=== PATIENT | female | born 1945 | race Caucasian/White ===

== ENCOUNTER → 2021-01-19 | Outpatient (CLI) | payer MEDICARE, OTHER | LOC: M PLARAD 08:15 | PROVIDERS: ATTEND Internal Medicine Pulmonary Disease | DX: R91.1 Solitary pulmonary nodule (principal) | CPT/HCPCS: 78815; A9552 ==

== ENCOUNTER → 2021-03-19 | Outpatient (CLI) | payer MEDICARE ==
[~2021-03-19] MED LIST: FLUT1BLS8 IH; LISI10TA15 PO; PROAAER10 INH
--- NOTE | 2021-03-19 11:16 | REP ---
INDICATION: SOLITARY PULMONARY NODULE. COMPARISON: None. TECHNIQUE: Imaging protocol: Computed tomography of the chest without IV contrast. Contiguous 3 mm thick axial projection images were obtained through the chest. 2D sagittal and coronal reconstructions were performed. Radiation optimization: All CT scans at this facility use at least one of these dose optimization techniques: automated exposure control; mA and/or kV adjustment per patient size (includes targeted exams where dose is matched to clinical indication); or iterative reconstruction. FINDINGS: Lower neck: The thyroid gland is normal. There is no supraclavicular lymphadenopathy. Mediastinum: There are few, not pathologically enlarged mediastinal lymph nodes. Heart/thoracic aorta: The heart size is normal. There is no pericardial effusion. There is calcific vascular disease of the thoracic aorta and coronary arteries. Upper abdomen: There is calcific vascular disease of the abdominal aorta. There are bilateral adrenal adenomas, measuring 2.2 cm in diameter on the right and 1.4 cm in diameter on the left. Thoracic esophagus: Normal. Chest wall and axilla: The breasts and soft tissues of the chest wall appear unremarkable. There is no axillary lymphadenopathy. There is moderate degenerative disc disease of the mid and lower thoracic and upper lumbar spine, most severe at the T12-L1 level. Lung parenchyma: There is again noted a soft tissue density mass with a spiculated margin in the superior segment of the lower lobe of the right lung, measuring 1.7 by 1.2 x 1.1 cm (was 12 x 9 x 7 mm) there is mild upper lobe predominant centrilobular emphysema. There are a few, scattered, foci of nonspecific bronchiolitis. There are no pleural effusions. IMPRESSION: 1. Enlarging spiculated soft tissue density mass in the lower lobe of the right lung, highly suggestive of a primary bronchogenic carcinoma. 2. Multiple reactive mediastinal lymph nodes. 3. Stable bilateral adrenal adenomas. 4. Calcific vascular disease of the thoracoabdominal aorta and coronary arteries. 5. Thoracolumbar degenerative disc disease. <Electronically signed by Sawyer Miguel > 03/19/21 2209
== END ==
LOC: M PLAIMG 10:30
PROVIDERS: ATTEND Internal Medicine Pulmonary Disease
DX: R91.1 Solitary pulmonary nodule (principal)

== ENCOUNTER → 2021-03-20 | Outpatient (CLI) | payer MEDICARE | LOC: M LABSMTC 10:13 | PROVIDERS: ATTEND Anesthesiology | DX: Z01.812 Encounter for preprocedural laboratory examination (principal); Z20.822 Contact with and (suspected) exposure to COVID-19 ==

== ENCOUNTER → 2021-03-23 | Outpatient (CLI) | payer MEDICARE ==
--- NOTE | 2021-03-23 21:24 | ECGEPIP ---
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 Electronically Signed on 03-23-2021 21:23:46 EDT by Yevgeniy Bailey
== END ==
LOC: M EKG 12:46
PROVIDERS: ATTEND Anesthesiology
DX: J44.9 Chronic obstructive pulmonary disease, unspecified (principal); I10 Essential (primary) hypertension

== ENCOUNTER 2021-03-25 07:22 | Day surgery (SDC) | payer MEDICARE ==
[~2021-03-25] VITALS: Ht 160 cm; Wt 61.9 kg
[~2021-03-25 07:22] MED LIST changes: +ALBUTEROL SULFATE 2.5 MG/0.5 ML INH NEB SOLN INH ONE; +LIDOCAINE 4% INJ 5ML AMP INH ONE; +LR 1,000 ML IV ONE
[2021-03-25] MEDS ORDERED: ROCURONIUM BROMIDE 50 MG/5 ML VIAL As Ordered ONE (09:10)
[2021-03-25] MEDS ORDERED: LIDOCAINE 2% 100MG/5ML SDV (FOR ANES.) As Ordered ONE (09:10)
[2021-03-25] MEDS ORDERED: fentaNYL 100 MCG/2 ML INJECTION (J3010) As Ordered ONE (09:11)
[2021-03-25] MEDS ORDERED: MIDAZOLAM INJ 2MG/2ML VIAL (J2250 PER 1MG) As Ordered ONE (09:11)
[2021-03-25] MEDS ORDERED: propofoL 200 MG/20 ML VIAL As Ordered ONE (09:11)
[2021-03-25] MEDS ORDERED: CETACAINE SPRAY 5GM As Ordered ONE (09:12)
[2021-03-25] MEDS ORDERED: THROMBIN SOLN 5,000 UNITS VIAL As Ordered ONE (09:12)
[2021-03-25] MEDS ORDERED: EPINEPHrine 1MG/10ML SYRINGE 1.5IN As Ordered ONE (09:12)
[2021-03-25] MEDS ORDERED: fentaNYL 100 MCG/2 ML INJECTION (J3010) IV PRN (10:50)
[2021-03-25] MEDS ORDERED: dexameTHASONE 4 MG/ML 1ML VIAL (J1100 PER 1MG) As Ordered ONE (10:50)
[2021-03-25] MEDS ORDERED: ONDANSETRON 4MG/2ML VIAL IV PRN (10:50)
[2021-03-25] MEDS ORDERED: oxyCODONE 5MG TAB PO PRN (10:50)
[2021-03-25] MEDS ORDERED: SUGAMMADEX SODIUM 500 MG/5 ML VIAL (BRIDION) As Ordered ONE (10:50)
[2021-03-25] MEDS ORDERED: ONDANSETRON 4MG/2ML VIAL As Ordered ONE (10:50)
[2021-03-25] MEDS ORDERED: METOCLOPRAMIDE INJ 10MG/2ML VIAL (J2765 PER 1) As Ordered ONE (10:50)
[2021-03-25] MEDS ORDERED: HYDROMORPHONE HCL 0.5 MG/ 0.5 ML SYRINGE (J1170 PER 1) IV PRN (10:50)
[2021-03-25] MEDS ORDERED: LR 1,000 ML IV SCH (10:50)
[2021-03-25] MEDS ORDERED: PHENYLephrine 500MCG 5ML (100MCG/ML) SYRINGE As Ordered ONE (10:50)
[2021-03-25] MEDS ORDERED: ALBUTEROL SULFATE 2.5 MG/0.5 ML INH NEB SOLN INH ONE (10:55)
--- NOTE | 2021-03-25 10:59 | ROOR ---
Patient Name: Salima Malhotra Procedure Date: 03/25/2021 9:08 AM Date of : 1945 Admit Type: Outpatient Age: 75 Room: Main OR Note Status: Finalized Attending MD: Nancy Pierce MD Procedure: Bronchoscopy Indications: Right lower lobe nodule Providers: Nancy Pierce MD (Doctor) Referring MD: Abram Rodriguez DO (Referring MD) Requesting Physician: Medicines: Lidocaine 4% via nebulizer with Albuterol 2.5 mg, Epinephrine 1 mg/10 mL topical 1 mL, Cetacaine topical, General Anesthesia Complications: No immediate complications. Estimated blood loss: Minimal Procedure: Pre-Anesthesia Assessment: - Prior to the procedure, a History and Physical was performed, and patient medications and allergies were reviewed. The patient's tolerance of previous anesthesia was also reviewed. The risks and benefits of the procedure and the sedation options and risks were discussed with the patient. All questions were answered, and informed consent was obtained. Prior Anticoagulants: The patient has taken no previous anticoagulant or antiplatelet agents. ASA Grade Assessment: II - A patient with mild systemic disease. After reviewing the risks and benefits, the patient was deemed in satisfactory condition to undergo the procedure. - Patient identification and proposed procedure were verified prior to the procedure by the physician, the nurse, the anesthesiologist, the associate creative director and the security systems technician. The procedure was verified in the procedure room. The Bronchoscope was introduced through the mouth, via the endotracheal tube (the patient was intubated for the procedure) and advanced to the tracheobronchial tree of both lungs. The procedure was accomplished without difficulty. The patient tolerated the procedure well. Findings: The endotracheal tube is in good position. The visualized portion of the trachea is of normal caliber. The german is sharp. The tracheobronchial tree was examined to at least the first subsegmental level. Bronchial mucosa and anatomy are normal; there was some mucosal pitting and webbing and thick mucoid secretions. There are no endobronchial secretions. [employer] Electromagnetic navigation bronchoscopy was performed. The CT scan was used for planning purposes. A virtual bronchoscopic image was generated using the planning software. The target in the posterior basal segment of the right lower lobe was marked. A nodule almost 2 cm in size was found and a pathway was created. After a complete airway exam, the locatable robotic navigation phase was then begun to locate the target lesion(s). Radial ultrasound probe was malfunctioning. Positioning was confirmed using fluoroscopy. Transbronchial biopsies of a nodule were performed in the posterior basal segment of the right lower lobe using forceps and sent for histopathology examination. The procedure was guided by fluoroscopy. Transbronchial biopsy technique was selected because the sampling site was not visible endoscopically. Impression: - Right lower lobe nodule - The airway examination was normal. - Electromagnetic navigation bronchoscopy was performed. - Transbronchial lung biopsies were performed. Recommendation: - Await test results. Procedure Code(s): --- Professional --- 28346, Bronchoscopy, rigid or flexible, including fluoroscopic guidance, when performed; with transbronchial lung biopsy(s), single lobe 63146, Bronchoscopy, rigid or flexible, including fluoroscopic guidance, when performed; with computer-assisted, image-guided navigation (List separately in addition to code for primary procedure[s]) CPT copyright 2019 [employer]. All rights reserved. The codes documented in this report are preliminary and upon drill grinder review may be revised to meet current compliance requirements. Nancy Pierce MD 03/25/2021 10:59:06 AM Number of Addenda: 0 Note Initiated On: 03/25/2021 9:08 AM
--- NOTE | 2021-03-25 11:06 | REP ---
INDICATION: S/P Bronch. COMPARISON: Comparison chest x-ray October 09, 2020. TECHNIQUE: Portable upright AP chest radiograph. FINDINGS: The lungs are symmetrically aerated. There are 2 fiducial metallic markers in the right infrahilar region. There is no evidence of pneumothorax or hydrothorax or parenchymal infiltrate. Heart is not felt to be enlarged. IMPRESSION: Fiducial markers visible in the right infrahilar region. No complication is seen. <Electronically signed by Dre Varma > 03/25/21 [id number]
[2021-03-25 11:12] VITALS: BP 129/63
--- NOTE | 2021-03-26 08:05 | REP ---
INDICATION: RIGHT LOWER LOBE ABNORMAL FINDING. COMPARISON: None. TECHNIQUE: Sixteen views. 208.3 seconds of fluoroscopy time is reported. FINDINGS: A series of 16 fluoroscopically obtained spot radiographs document bronchoscopic position and manipulation. IMPRESSION: . Procedural imaging. <Electronically signed by Dre Varma > 03/26/21 0875
== END 2021-03-25 11:40 | disposition home or self-care (01) ==
LOC: M SDC 07:22
PROVIDERS: ATTEND Internal Medicine Pulmonary Disease
DX: C34.91 Malignant neoplasm of unspecified part of right bronchus or lung (principal); I10 Essential (primary) hypertension; J44.9 Chronic obstructive pulmonary disease, unspecified; M19.90 Unspecified osteoarthritis, unspecified site; F17.210 Nicotine dependence, cigarettes, uncomplicated; Z79.899 Other long term (current) drug therapy; Z79.51 Long term (current) use of inhaled steroids
CPT/HCPCS: 31627; 31628; 71045; 76000; 88305; 88341; 88342; A4648; J1100; J2250; J2370; J2405; J2765; J3010; S2900

== ENCOUNTER → 2021-04-16 | Outpatient (CLI) | payer MEDICARE ==
[~2021-04-16] MED LIST changes: -ALBUTEROL SULFATE 2.5 MG/0.5 ML INH NEB SOLN INH ONE; +BUPR150T12 PO; +GLUCTAB6 PO; -LIDOCAINE 4% INJ 5ML AMP INH ONE; -LR 1,000 ML IV ONE; +THERTAB52 PO
--- NOTE | 2021-04-16 14:10 | RADONC.CN ---
Radiation Oncology Hx/Consult Radiation Oncology Consult Date of Service: Apr 16, 2021 Pt Identifier Salima Malhotra is a 75 year old female current smoker with a recently diagnosed NSCLC of the RLL [id number] stage IA2 PDL1 90%. She is seen today for consideration of SBRT. Diagnosis/Treatment History Oncologic History Patient followed by Dr. Pierce for COPD and right lung nodule. 12/18/[address] chest with RLL nodule 01/19/21 PET-CT with low grade uptake in the RLL nodule. No mediastinal or hilar uptake 03/19/21 CT chest enlargement of the RLL to 1.7 cm 03/25/21 EBUS biopsy showing adenocarcinoma PDL1 90% negtive for ALK EGFR BRAF ROS1 12/23/20 PFTs FVC 2.19 FEV1 1.19 FEV1/FVC 74% pred DLCO 35% pred Interval History Salima reports she has some mild MOLINA but is otherwise functional at home. She has minimal cough, no hemoptysis. No CP. She has preserved appetite and weight. She current smokes, would like to quit. Was unable to obtain chantix previously. She is interested in wellbutrin. She is ready to set a quit date upon completion of RT. Past Medical History: COPD HTN Arthritis Past Surgical History: Appendectomy Family History: Mother pancratic cancer Social History: 40 pack year current 1 ppd smoker Drinks occasionally not to excess Allergies / Meds Allergies: Coded Allergies: No Known Allergies (Unverified , 03/20/21) Home Meds Active Scripts Bupropion Hcl (Bupropion Xl) 150 Mg Tab.er.24h, 1 TAB PO DAILY for 30 Days, #30 TAB 2 Refills Prov:ELIZABETH VALENZUELA MD 04/16/21 Reported Medications Gluc Hobbs/Chondro Hobbs A/Vit C/Mn (Glucosamine Chondroitin Tab) 1 Each Tablet, 1 TAB PO DAILY, TAB 04/16/21 Multivitamin,Therapeutic (Thera-Tabs) 1 Each Tablet, 1 TAB PO DAILY for 30 Days, #30 TAB 04/16/21 Albuterol Sulfate (Proair Hfa) 8.5 Gm Hfa.aer.ad, 2 PUFF INH PRN, INHALER 03/20/21 Lisinopril/Hydrochlorothiazide (Lisinopril-Hctz 10-12.5 mg Tab) 1 Each Tablet, 1 TAB PO DAILY, TAB 03/20/21 Fluticasone/Umeclidin/Vilanter (Trelegy Ellipta 200-62.5-25) 200-62.5 Blst.w.dev, 1 EACH IH DAILY 03/20/21 Review of Systems Constitutional: Denies: Fever, Fatigue, Weight Loss Eyes: Denies: Pain HEENT: Denies: Head Aches Skin: Denies: Rash Pulmonary: Reports: Dyspnea; Denies: Cough, Pleuritic Chest Pain Cardiovascular: Denies: Chest Pain, Edema Gastrointestinal: Denies: Abdominal Pain Hematologic: Denies: Enlarged Lymph Nodes Musculoskeletal: Reports: Joint pain; Denies: Neck pain, Back pain Neurological: Denies: Weakness, Numbness Psych: Reports: Mood Normal Vital Signs Ht 63" Wt 139 lbs BMI 24.5 T 98 P 86 RR 18 BP 174/90 O2 93% on RA Pain 0 Fatigue 0 General Exam: Alert, Cooperative, No Acute Distress Eye Exam: PERRLA, EOMI ENT EXAM: Atraumatic Neck Exam: Supple; Negative: Lymphadenopathy Chest Exam: Clear to auscultation, Wheezing Heart Exam: Rate Normal, Regular Rhythm Abdomen Exam: Soft Extremity Exam: Negative: Edema Skin Exam: Nl turgor and temperature Neuro Exam: Normal Gait, Normal Speech, Cranial Nerves 3-12 NL Psych Exam: Mental status NL Diagnostic and Laboratory Diagnostic Review Radiologic images, relevant labs and pathology reports were personally reviewed and discussed with Ms. Malhotra. Assessment and Plan Impression Ms. Malhotra is a 75 year old female current smoker with a recently diagnosed NSCLC of the RLL [id number] stage IA2 PDL1 90%. She is seen today for consideration of SBRT. Stage NSCLC RLL [id number] stage IA2 Performance Status ECOG 0 Plan We had an extensive discussion with Ms. Malhotra regarding the diagnosis at hand and available therapeutic options. She has a small peripheral lesion which is a good SBRT target. She is not a surgical candidate based on her PFTs. I recommend 60 Gy in 5 fractions with 4DCT/ITV/DCA planning. We discussed the efficacy of SBRT in this setting but that it does not preclude the possibility of another lesion developing elsewhere in time. To modify this risk I encouraged her to quit smoking. She is ready to pick a quit date. Agreed it would be immediately after completing SBRT. She would like a quit aid so I will prescribe wellbutrin 150 mg daily for this purpose. She can use nicotine replacement products as she sees fit. We spent 3 minutes discussing her quit attempt. We discussed the logistics of receiving radiation therapy in detail including the need for a 1-time planning session. This can occur in the coming weeks. We reviewed the side effects of treatment including fatigue and pneumonitis as well as late fibrosis. After discussing the risks, benefits and alternatives to radiation therapy, Ms. Malhotra was amenable to pursuing radiotherapy. All questions were answered to the patient's satisfaction. We instructed the patient that if there were any questions,concerns or changes in clinical status in the interim to contact us. Recommendations SBRT 60 Gy in 5 fractions with 4DCT/ITV/DCA planning Simulation in the coming weeks Wellbutrin 150 mg daily as quit aid Billing Statement Total time of [45] minutes was spent preparing for the visit [3], obtaining HPI [7], examining the patient [3], reviewing diagnostic tests [7], discussing management options [15], coordinating care [2], and writing this note [8]. ELIZABETH VALENZUELA MD Apr 16, 2021 14:10
== END ==
LOC: M ONCR 12:47
PROVIDERS: ATTEND General Practice
DX: C34.31 Malignant neoplasm of lower lobe, right bronchus or lung (principal); F17.210 Nicotine dependence, cigarettes, uncomplicated; Z79.899 Other long term (current) drug therapy

== ENCOUNTER 2021-04-21 13:47 | Outpatient (RCR) | payer MEDICARE | END 2021-04-26 | LOC: M ONCR 13:47 | PROVIDERS: ATTEND General Practice | DX: C34.31 Malignant neoplasm of lower lobe, right bronchus or lung (principal) ==

== ENCOUNTER 2021-05-15 13:40 | Outpatient (RCR) | payer MEDICARE ==
[~2021-05-15 13:40] MED LIST changes: -LISI10TA15 PO; +LISI10TA24 PO
== END 2021-05-26 ==
LOC: M ONCR 13:40
PROVIDERS: ATTEND General Practice
DX: C34.31 Malignant neoplasm of lower lobe, right bronchus or lung (principal)

== ENCOUNTER → 2021-10-21 | Outpatient (CLI) | payer MEDICARE ==
[~2021-10-21] MED LIST changes: +ISOVUE-370 76% 100ML VIAL As Ordered ONE
== END ==
LOC: M RAD 14:15
PROVIDERS: ATTEND General Practice
DX: C34.90 Malignant neoplasm of unspecified part of unspecified bronchus or lung (principal)
CPT/HCPCS: 71260; Q9967

== ENCOUNTER → 2021-10-23 | Outpatient (CLI) | payer MEDICARE ==
[~2021-10-23] MED LIST changes: -ISOVUE-370 76% 100ML VIAL As Ordered ONE
== END ==
LOC: M ONCR 14:23
PROVIDERS: ATTEND General Practice
DX: C34.31 Malignant neoplasm of lower lobe, right bronchus or lung (principal); F17.210 Nicotine dependence, cigarettes, uncomplicated; R91.8 Other nonspecific abnormal finding of lung field; Z92.3 Personal history of irradiation; Z96.652 Presence of left artificial knee joint

== ENCOUNTER → 2021-10-30 | Outpatient (CLI) | payer MEDICARE | LOC: M LABSMTC 11:28 | PROVIDERS: ATTEND Internal Medicine Pulmonary Disease | DX: Z01.812 Encounter for preprocedural laboratory examination (principal); Z20.822 Contact with and (suspected) exposure to COVID-19 ==

== ENCOUNTER 2021-11-04 08:08 | Day surgery (SDC) | payer MEDICARE ==
[~2021-11-04] VITALS: Ht 160 cm; Wt 62.2 kg
[~2021-11-04 08:08] MED LIST changes: +ALBUTEROL SULFATE 2.5 MG/0.5 ML INH NEB SOLN INH ONE; +ECOT81TA5 PO; +LIDOCAINE 4% INJ 5ML AMP INH ONE; +LR 1,000 ML IV ONE; +ULTR5TAB PO
[2021-11-04] MEDS ORDERED: THROMBIN SOLN 5,000 UNITS VIAL As Ordered ONE (10:37)
[2021-11-04] MEDS ORDERED: EPINEPHrine 1MG/10ML SYRINGE 1.5IN As Ordered ONE (10:38)
[2021-11-04] MEDS ORDERED: CETACAINE SPRAY 5GM As Ordered ONE (10:38)
[2021-11-04] MEDS ORDERED: propofoL 200 MG/20 ML VIAL As Ordered ONE (11:01)
[2021-11-04] MEDS ORDERED: ROCURONIUM BROMIDE 50 MG/5 ML VIAL As Ordered ONE (11:01)
[2021-11-04] MEDS ORDERED: dexameTHASONE 4 MG/ML 1ML VIAL (J1100 PER 1MG) As Ordered ONE (11:01)
[2021-11-04] MEDS ORDERED: MIDAZOLAM INJ 2MG/2ML VIAL (J2250 PER 1MG) As Ordered ONE (11:01)
[2021-11-04] MEDS ORDERED: fentaNYL 100 MCG/2 ML INJECTION As Ordered ONE (11:01)
[2021-11-04] MEDS ORDERED: LIDOCAINE 2% 100MG/5ML SDV (FOR ANES.) As Ordered ONE (11:01)
[2021-11-04] MEDS ORDERED: ACETAMINOPHEN 1000MG 100ML IV BTL (OFIRMEV) (J0131 PER 10MG) As Ordered ONE (11:08)
[2021-11-04] MEDS ORDERED: ONDANSETRON 4MG/2ML VIAL As Ordered ONE (11:08)
[2021-11-04] MEDS ORDERED: SUGAMMADEX SODIUM 500 MG/5 ML VIAL (BRIDION) As Ordered ONE (11:10)
[2021-11-04] MEDS ORDERED: fentaNYL 100 MCG/2 ML INJECTION IV PRN (11:40)
[2021-11-04] MEDS ORDERED: ONDANSETRON 4MG/2ML VIAL IV PRN (11:40)
[2021-11-04] MEDS ORDERED: LR 1,000 ML IV SCH (11:40)
[2021-11-04] MEDS ORDERED: oxyCODONE 5MG TAB PO PRN (11:40)
[2021-11-04 14:00] VITALS: BP 108/51
== END 2021-11-04 15:32 | disposition home or self-care (01) ==
LOC: M SDC 08:08
PROVIDERS: ATTEND Internal Medicine Pulmonary Disease
DX: C34.92 Malignant neoplasm of unspecified part of left bronchus or lung (principal); J44.9 Chronic obstructive pulmonary disease, unspecified; I10 Essential (primary) hypertension; M17.0 Bilateral primary osteoarthritis of knee; Z96.652 Presence of left artificial knee joint; Z87.891 Personal history of nicotine dependence; Z79.899 Other long term (current) drug therapy; Z79.51 Long term (current) use of inhaled steroids; Z79.82 Long term (current) use of aspirin
CPT/HCPCS: 31652; 71045; 88173; 88305; 88341; 88342; J0131; J0171; J1100; J2250; J2405; J3010

== ENCOUNTER → 2021-12-01 | Outpatient (CLI) | payer MEDICARE ==
[~2021-12-01] MED LIST changes: -ALBUTEROL SULFATE 2.5 MG/0.5 ML INH NEB SOLN INH ONE; -GLUCTAB6 PO; +GLUCTAB7 PO; -LIDOCAINE 4% INJ 5ML AMP INH ONE; -LR 1,000 ML IV ONE
== END ==
LOC: M PLARAD 13:07
PROVIDERS: ATTEND General Practice
DX: R93.89 Abnormal findings on diagnostic imaging of other specified body structures (principal); C34.31 Malignant neoplasm of lower lobe, right bronchus or lung
CPT/HCPCS: 78815; A9552

== ENCOUNTER → 2021-12-24 | Outpatient (RCR) | payer MEDICARE ==
[~2021-12-24] MED LIST changes: +ONDA-84 PO; +PROC10TA5 PO
== END ==
LOC: M ONCR 12-08 08:36
PROVIDERS: ATTEND General Practice
DX: C34.31 Malignant neoplasm of lower lobe, right bronchus or lung (principal)

== ENCOUNTER → 2022-01-07 | Outpatient (CLI) | payer MEDICARE ==
[~2022-01-07] MED LIST changes: +LIDO1CRE42 TOP
== END ==
LOC: M LABSMTC 10:57
PROVIDERS: ATTEND Anesthesiology
DX: Z01.818 Encounter for other preprocedural examination (principal); Z11.52 Encounter for screening for COVID-19

== ENCOUNTER → 2022-01-11 | Outpatient (CLI) | payer MEDICARE ==
[~2022-01-11] MED LIST changes: +LIDOCAINE 1% MDV 20ML VIAL As Ordered ONE; +MIDAZOLAM INJ 2MG/2ML VIAL (J2250 PER 1MG) As Ordered ONE; +NS 1,000 ML IV SCH; +PROMETHAZINE 25MG/ML 1ML VIAL As Ordered ONE; +ceFAZolin 2 GM/D5W 50 ML IV BAG (J0690 PER 500MG) As Ordered ONE; +ceFAZolin SOD 2 GM in IV 1 EA IV ONE; +diphenhydrAMINE 50MG/ML VIAL (J1200) As Ordered ONE; +fentaNYL 100 MCG/2 ML INJECTION As Ordered ONE
[2022-01-11 15:45] VITALS: BP 101/58
== END ==
LOC: M IRPRO 10:37
PROVIDERS: ATTEND Nurse Practitioner
DX: C34.90 Malignant neoplasm of unspecified part of unspecified bronchus or lung (principal)

== ENCOUNTER 2022-01-22 10:38 | Outpatient (RCR) | payer MEDICARE ==
[~2022-01-22 10:38] MED LIST changes: -LIDOCAINE 1% MDV 20ML VIAL As Ordered ONE; -MIDAZOLAM INJ 2MG/2ML VIAL (J2250 PER 1MG) As Ordered ONE; -NS 1,000 ML IV SCH; -PROMETHAZINE 25MG/ML 1ML VIAL As Ordered ONE; -ceFAZolin 2 GM/D5W 50 ML IV BAG (J0690 PER 500MG) As Ordered ONE; -ceFAZolin SOD 2 GM in IV 1 EA IV ONE; -diphenhydrAMINE 50MG/ML VIAL (J1200) As Ordered ONE; -fentaNYL 100 MCG/2 ML INJECTION As Ordered ONE
[2022-01-25] MEDS ORDERED: MAGICMW SS (11:43)
[2022-01-26] MEDS ORDERED: MAGICMW SS ×2 (14:06→14:34)
== END 2022-01-24 ==
LOC: M ONCR 10:38
PROVIDERS: ATTEND General Practice
DX: C34.31 Malignant neoplasm of lower lobe, right bronchus or lung (principal)
CPT/HCPCS: 77336; 77386; C1769; C1788; C1894; J0690; J1200; J1642; J1644; J2250; J2550; J3010

== ENCOUNTER 2022-02-03 10:47 | Outpatient (RCR) | payer MEDICARE ==
[~2022-02-03 10:47] MED LIST changes: +MAGICMW SS; +OXYC1SOL3 PO
== END 2022-02-24 ==
LOC: M ONCR 10:47
PROVIDERS: ATTEND General Practice
DX: C34.31 Malignant neoplasm of lower lobe, right bronchus or lung (principal)

== ENCOUNTER → 2022-03-03 | Outpatient (CLI) | payer MEDICARE ==
[~2022-03-03] MED LIST changes: +ISOVUE-370 76% 100ML VIAL As Ordered ONE
== END ==
LOC: M RAD 08:22
PROVIDERS: ATTEND Specialist
DX: C34.90 Malignant neoplasm of unspecified part of unspecified bronchus or lung (principal)
CPT/HCPCS: 71260; J1642; Q9967

== ENCOUNTER → 2022-04-27 | Outpatient (CLI) | payer MEDICARE ==
[~2022-04-27] MED LIST changes: +GASTROGRAFIN SOLUTION 30ML (Q9963) As Ordered ONE
== END ==
LOC: M RAD 08:58
PROVIDERS: ATTEND General Practice
DX: C34.31 Malignant neoplasm of lower lobe, right bronchus or lung (principal)
CPT/HCPCS: 74177; J1642; Q9963; Q9967

== ENCOUNTER → 2022-05-04 | Outpatient (CLI) | payer MEDICARE ==
[~2022-05-04] MED LIST changes: -GASTROGRAFIN SOLUTION 30ML (Q9963) As Ordered ONE; -ISOVUE-370 76% 100ML VIAL As Ordered ONE
== END ==
LOC: M EKG 14:34
PROVIDERS: ATTEND Nurse Practitioner
DX: I49.9 Cardiac arrhythmia, unspecified (principal)

== ENCOUNTER → 2022-05-11 | Outpatient (CLI) | payer MEDICARE | LOC: M ONCR 10:50 | PROVIDERS: ATTEND General Practice | DX: C34.31 Malignant neoplasm of lower lobe, right bronchus or lung (principal); C77.1 Secondary and unspecified malignant neoplasm of intrathoracic lymph nodes; J44.9 Chronic obstructive pulmonary disease, unspecified; Z79.51 Long term (current) use of inhaled steroids; Z79.82 Long term (current) use of aspirin; Z79.899 Other long term (current) drug therapy; Z87.891 Personal history of nicotine dependence; Z92.3 Personal history of irradiation; Z92.21 Personal history of antineoplastic chemotherapy ==

== ENCOUNTER → 2022-10-08 | Outpatient (CLI) | payer MEDICARE ==
[~2022-10-08] MED LIST changes: +GASTROGRAFIN SOLUTION 30ML As Ordered ONE; +ISOVUE-370 76% 100ML VIAL As Ordered ONE
== END ==
LOC: M RAD 11:27
PROVIDERS: ATTEND Nurse Practitioner
DX: C34.90 Malignant neoplasm of unspecified part of unspecified bronchus or lung (principal)
CPT/HCPCS: 71260; 74177; Q9963; Q9967

== ENCOUNTER → 2022-10-26 | Outpatient (POV) | payer MEDICARE, BC ==
[~2022-10-26] VITALS: Ht 160 cm; Wt 61.8 kg
[~2022-10-26] MED LIST changes: -GASTROGRAFIN SOLUTION 30ML As Ordered ONE; -ISOVUE-370 76% 100ML VIAL As Ordered ONE
[2022-10-26 08:00] VITALS: BP 152/74
== END ==
LOC: M IRPOV 07:48
PROVIDERS: ATTEND Radiology Diagnostic Radiology
DX: Z45.2 Encounter for adjustment and management of vascular access device (principal)

== ENCOUNTER → 2022-11-11 | Outpatient (CLI) | payer MEDICARE, BC ==
[~2022-11-11] MED LIST changes: +LIDOCAINE 1% MDV 20ML VIAL As Ordered ONE; +MIDAZOLAM INJ 2MG/2ML VIAL As Ordered ONE; +NS 1,000 ML IV SCH; +ceFAZolin 2 GM/D5W 50 ML IV BAG As Ordered ONE; +ceFAZolin SOD 2 GM in IV 1 EA IV ONE; +diphenhydrAMINE 50MG/ML VIAL As Ordered ONE; +fentaNYL 100 MCG/2 ML INJECTION As Ordered ONE
[2022-11-11 12:00] VITALS: BP 109/62
== END ==
LOC: M IRPRO 08:44
PROVIDERS: ATTEND Radiology Diagnostic Radiology
DX: Z45.2 Encounter for adjustment and management of vascular access device (principal); C54.1 Malignant neoplasm of endometrium; Z79.82 Long term (current) use of aspirin
CPT/HCPCS: 36590; 99152; J0690; J2250; J3010

== ENCOUNTER → 2022-11-23 | Outpatient (POV) | payer MEDICARE, BC ==
[~2022-11-23] VITALS: Ht 160 cm; Wt 65.9 kg
[~2022-11-23] MED LIST changes: -LIDOCAINE 1% MDV 20ML VIAL As Ordered ONE; -MIDAZOLAM INJ 2MG/2ML VIAL As Ordered ONE; -NS 1,000 ML IV SCH; -ceFAZolin 2 GM/D5W 50 ML IV BAG As Ordered ONE; -ceFAZolin SOD 2 GM in IV 1 EA IV ONE; -diphenhydrAMINE 50MG/ML VIAL As Ordered ONE; -fentaNYL 100 MCG/2 ML INJECTION As Ordered ONE
[2022-11-23 09:15] VITALS: BP 162/71
== END ==
LOC: M IRPOV 08:59
PROVIDERS: ATTEND Radiology Diagnostic Radiology
DX: Z45.2 Encounter for adjustment and management of vascular access device (principal)